=== PATIENT | female | born 1945 | race Hispanic/Latino ===

== ENCOUNTER 2016-11-09 15:29 | Outpatient (CLI) | payer OTHER, MEDICARE ==
--- NOTE | 2016-11-09 16:34 | XRay Report ---
XRAY BILATERAL HIP 2 VIEWS EACH: 11/09/16 15:29:00 CLINICAL: Pain. FINDINGS: Right: No fracture or dislocation. Severe osteoarthritis with narrowing of the joint space and moderately large superior acetabular and femoral osteophytes. Subchondral geode in the femoral head. Acetabular eburnation and small central and inferior geodes. Normal soft tissues. Left: No fracture or dislocation. Minimal narrowing of the joint space and a small superior acetabular osteophyte.Normal soft tissues. The pelvic bones are intact.Normal SI joints. IMPRESSION: Moderately severe osteoarthritis of the right hip and mild osteoarthritis of the left hip.
--- NOTE | 2016-11-09 16:37 | XRay Report ---
XRAY BILATERAL KNEE THREE VIEWS EACH: 11/09/16 15:29:00 CLINICAL: Pain. FINDINGS: Right: Moderately severe medial joint space narrowing and large medial osteophytes. The lateral joint space is normal. A small lateral osteophyte. Patellofemoral joint space narrowing with superior and inferior osteophytes. No fracture or dislocation. No joint effusion. Normal soft tissues. Left: Severe medial joint space narrowing with large medial osteophytes. The lateral joint spaces widened. Patellofemoral joint space narrowing with superior and inferior osteophytes. No fracture or dislocation. No joint effusion.Normal soft tissues. IMPRESSION: Bilateral osteoarthritis with greater involvement of the medial joint spaces and the patellofemoral joints. The left knee is worse than the right.
== END 2016-11-09 15:30 | disposition home or self-care (01) ==
LOC: SPVIMAG 15:29
PROVIDERS: ATTEND Internal Medicine
DX: M17.0 Bilateral primary osteoarthritis of knee (principal); M16.0 Bilateral primary osteoarthritis of hip
CPT/HCPCS: 73521

== ENCOUNTER 2019-04-07 16:06 | Outpatient (CLI) | payer MEDICARE ==
--- NOTE | 2019-04-07 16:58 | XRay Report ---
RIGHT HIP 3 VIEW(S) INDICATION / CLINICAL INFORMATION: TROCHANTERIC BURSITIS RIGHT HIP COMPARISON: Hip and pelvis radiograph dated 11/09/2016 FINDINGS: AP Pelvis, AP and frog-leg lateral views of the hip are reviewed. BONES / JOINT(S): No acute fracture or subluxation. Osteoarthrosis of the hips appears to have progre ssed in comparison to 11/09/2016. Osteophytes are larger, and there is a greater degree of sclerosis in the acetabula. There is now complete absence of cartilage space at the superior aspects of both hips . SOFT TISSUES: No evidence of large hip joint or trochanteric bursal effusions radiographically. Signer Name: Bull Littlejohn MD Signed: 04/07/2019 4:54 PM Workstation Name: [id number]
--- NOTE | 2019-04-07 17:00 | XRay Report ---
CHEST 2 VIEWS INDICATION / CLINICAL INFORMATION: DYSPNEA ON EXERTION. COMPARISON: Chest radiograph 06/23/2014 FINDINGS: SUPPORT DEVICES: None. HEART / MEDIASTINUM: No significant abnormality. LUNGS / PLEURA: No significant pulmonary or pleural abnormality. No pneumothorax. ADDITIONAL FINDINGS: Cholecystectomy clips IMPRESSION: No acute finding. No significant change. Signer Name: Bull Littlejohn MD Signed: 04/07/2019 4:55 PM Workstation Name: [id number]
== END 2019-04-07 16:07 | disposition home or self-care (01) ==
LOC: SPVIMAG 16:06
PROVIDERS: ATTEND Internal Medicine
DX: M25.751 Osteophyte, right hip (principal); R06.09 Other forms of dyspnea
CPT/HCPCS: 71046

== ENCOUNTER 2019-12-30 12:00 | Outpatient (CLI) | payer MEDICARE ==
--- NOTE | 2019-12-31 15:25 | XRay Report ---
CHEST 2 VIEWS INDICATION: DYSPNEA ON EXERTION R06.00. COMPARISON: 04/07/2019 FINDINGS: Support devices: None. Heart: Within normal limits. Lungs/Pleura: No acute air space or interstitial disease. No significant pleural effusion. IMPRESSION: No acute findings. Signer Name: Franklin Jaquez MD Signed: 12/31/2019 3:20 PM Workstation Name: [id number]
== END 2019-12-30 12:01 | disposition home or self-care (01) ==
LOC: SPVIMAG 12:00
PROVIDERS: ATTEND Internal Medicine
DX: R06.00 Dyspnea, unspecified (principal)
CPT/HCPCS: 71046